=== PATIENT | female | born 1965 | race Caucasian/White ===

== ENCOUNTER 2018-03-15 13:41 | Outpatient (CLI) | payer BC | END 2018-03-15 13:42 | disposition home or self-care (01) | LOC: BICMAMMO 13:41 | PROVIDERS: ATTEND Family Medicine | DX: Z12.31 Encounter for screening mammogram for malignant neoplasm of breast (principal); Z13.820 Encounter for screening for osteoporosis; Z85.89 Personal history of malignant neoplasm of other organs and systems; Z80.3 Family history of malignant neoplasm of breast; Z85.828 Personal history of other malignant neoplasm of skin | CPT/HCPCS: 77063; 77067; 77080 ==

== ENCOUNTER 2018-08-30 12:58 | Outpatient (CLI) | payer BC ==
--- NOTE | 2018-08-30 17:28 | ULT ---
LIMITED RIGHT BREAST ULTRASOUND: Date: 08-30-18 Provided Clinical History: Right breast palpable abnormality. FINDINGS: Limited sonographic interrogation was performed of the right breast in the region of palpable concern . There is a 3.7 cm cyst present in the region of palpable concern. There is a somewhat thickened wal l and internal debris suggesting associated inflammation. IMPRESSION: BIRADS category 2 - benign findings. Cyst aspiration may be useful for symptomatic benefit. POS: OFF
== END 2018-08-30 12:59 | disposition home or self-care (01) ==
LOC: BICMAMMO 12:58
PROVIDERS: ATTEND Family Medicine
DX: N63.10 Unspecified lump in the right breast, unspecified quadrant (principal); Z80.3 Family history of malignant neoplasm of breast; Z85.828 Personal history of other malignant neoplasm of skin
CPT/HCPCS: G0279

== ENCOUNTER → 2018-09-02 | Day surgery (SDC) | payer BC ==
--- NOTE | 2018-09-02 09:44 | ULT ---
ULTRASOUND GUIDED RIGHT BREAST CYST ASPIRATION: DATE: 09/02/2018. PROVIDED CLINICAL HISTORY: Right breast cyst which is painful. FINDINGS: Informed consent was obtained from the patient. The 12 o'clock right breast cyst was again identifie d. The skin overlying this region was prepped and draped in the usual sterile manner. The soft tiss ues were infiltrated with 1% buffered Lidocaine. Under continuous sonographic guidance, a 22-gauge s cesar needle was advanced into the cyst with aspiration of approximately 15 cc of simple-appearing sl ightly yellow-tinged fluid. The needle was withdrawn and hemostasis achieved. No immediate complica tions. Post procedure sonography demonstrates complete resolution of the cyst. IMPRESSION: Technically successful right breast cyst aspiration. POS: OFF
== END ==
LOC: BICULT 07:33
PROVIDERS: ATTEND Family Medicine
PROC: 0H9T3ZZ Drainage of Right Breast, Percutaneous Approach (ICD-10-PCS; principal; 2018-09-02)
DX: N60.01 Solitary cyst of right breast (principal)
CPT/HCPCS: 76942

== ENCOUNTER 2019-03-22 11:54 | Outpatient (CLI) | payer BC ==
--- NOTE | 2019-03-22 13:27 | MRI ---
BRAIN MRI WITHOUT CONTRAST: 03/22/19 INDICATION: Frequent headaches. Reference is made to prior head CT, 06/09/17. FINDINGS: Ventricular system is normal in size. No mass effect, midline shift or acute territorial infarction. 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 Ther e is also susceptibility of the overlying left temporal calvarium related to craniotomy. No significa nt signal abnormalities of the brain parenchyma are evident. IMPRESSION: 1. No acute intracranial abnormalities. 2. 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 POS: C
--- NOTE | 2019-03-22 13:56 | MRI ---
MRA WIYOT OF MEDEROS, WITH 3D VOLUME RENDERING, NONCONTRAST: 03/22/19 CLINICAL HISTORY: Frequent headaches. History of prior aneurysm clipping. FINDINGS: Susceptibility artifact at the left carotid terminus is present relating to aneurysm clipping which d oes obscure visualization of this region. There is also susceptibility from overlying temporal cranio cherelle. Vertebrobasilar system is patent. The bilateral posterior cerebral arteries are unremarkable. The pro ximal left M1 segment is obscured by susceptibility but otherwise left MCA, as well as right MCA are patent. No significant stenosis or occlusion of the AZUL, bilaterally. Region of ACOM is unremarkable. Left posterior communicating artery region is obscured anteriorly by susceptibility. Otherwise, smal l caliber posterior communicating arteries are grossly unremarkable. No discrete intracranial aneurysm is evident. 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 Otherwise no s ignificant abnormality of the eklutna of Med[place] is seen. POS: [facility]
== END 2019-03-22 11:55 | disposition home or self-care (01) ==
LOC: BICMRI 11:54
PROVIDERS: ATTEND Family Medicine
DX: R51 Headache (principal)
CPT/HCPCS: 70544; 70551

== ENCOUNTER 2019-05-24 08:30 | Outpatient (CLI) | payer BC ==
--- NOTE | 2019-05-24 09:40 | MMO ---
Bilateral MAMMO Bilat Diag DDI+TIN. CLINICAL HISTORY: Patient is 53 years old and is seen for diagnostic exam and palpable abnormality in the left breast. The patient has no family history of breast cancer. The patient has no personal history of cancer. The patient has a history of right Cyst Aspiration in 2019. VIEWS: The views performed were: bilateral craniocaudal with tomosynthesis; bilateral mediolateral oblique with tomosynthesis; and bilateral mediolateral with tomosynthesis. FILMS COMPARED: The present examination has been compared to prior imaging studies performed at [facility] on 03/15/2018, 08/30/2018 and 05/24/2019. MAMMOGRAM FINDINGS: The breasts are heterogeneously dense, which could obscure a lesion on mammography. Finding 1: There are stable benign appearing calcifications seen in both breasts. Finding 2: There is an oval mass measuring 30 millimeters with circumscribed margins seen in the lower-inner region of the left breast. Corresponds to palpable abnormality. IMPRESSION: FINDING 1: STABLE CALCIFICATIONS IN BOTH BREASTS ARE BENIGN. FINDING 2: MASS IN THE LEFT BREAST REQUIRES ADDITIONAL EVALUATION. AN ULTRASOUND EXAM IS RECOMMENDED. THE RESULTS OF THIS EXAM WERE SENT TO THE PATIENT. ACR BI-RADS Category 0 - Incomplete: Need additional imaging evaluation. [facility] will notify the patient of the need for additional imaging services. MAMMOGRAPHY NOTE: 1. A negative mammogram report should not delay a biopsy if a dominant of clinically suspicious mass is present. 2. Approximately 10% to 15% of breast cancers are not detected by mammography. 3. Adenosis and dense breasts may obscure an underlying neoplasm. Reported by: SITA MOORE MD Electonically Signed: [id number]
--- NOTE | 2019-05-24 12:00 | ULT ---
LEFT BREAST ULTRASOUND: HISTORY: Palpable abnormality 7 o'clock position left breast. COMPARISON: Mammogram done today. FINDINGS: Ultrasound examination confirms the presence of a large 2.4 x 3.8 cm cyst. IMPRESSION: BIRADS category 2 - benign findings. POS: OFF
== END 2019-05-24 08:31 | disposition home or self-care (01) ==
LOC: BICMAMMO 08:30
PROVIDERS: ATTEND Family Medicine
DX: N63.24 Unspecified lump in the left breast, lower inner quadrant (principal); N63.10 Unspecified lump in the right breast, unspecified quadrant; R92.1 Mammographic calcification found on diagnostic imaging of breast
CPT/HCPCS: 77066; G0279

== ENCOUNTER 2019-12-06 14:18 | Outpatient (CLI) | payer BC ==
--- NOTE | 2019-12-06 15:37 | ULT ---
FOCUSED ULTRASOUND OF THE LEFT BREAST 12/06/19 COMPARISON: 05/24/19 HISTORY: Palpable mass within the left breast at the 11 o'clock position. FINDINGS: Inn the area of palpable concern, approximately 2 cm from the nipple, at the 11 o'clock position of t he left breast, there is a cyst measuring 2.7 x 1.7 x 2.7 cm. It demonstrates no internal blood flow or solid components. There is layering debris seen posteriorly within the cyst. IMPRESSION: Mildly complex cyst in the area of palpable concern on the left. This lesion is amenable to ultrasou nd guided aspiration if clinically warranted. POS: [facility]
--- NOTE | 2019-12-06 15:38 | MMO ---
Left Breast MAMMO Unilat Diag DDI LT+TIN. CLINICAL HISTORY: Patient is 54 years old and is seen for diagnostic exam. The patient has no family history of breast cancer. The patient has no personal history of cancer. The patient has a history of right Cyst Aspiration in 2019. VIEWS: The views performed were: left craniocaudal with tomosynthesis; left mediolateral oblique with tomosynthesis; and left mediolateral with tomosynthesis. FILMS COMPARED: The present examination has been compared to prior imaging studies performed at [facility] on 08/30/2018, 05/24/2019 and 12/06/2019. This study has been interpreted with the assistance of computer-aided detection. MAMMOGRAM FINDINGS: The breast is heterogeneously dense, which could obscure a lesion on mammography. There is an oval mass seen in the left breast at 11 o'clock. Focused ultrasound demonstrates a cyst with layering debris in this region. No solid components or internal blood flow. There are no suspicious masses, suspicious calcifications, or new areas of architectural distortion. IMPRESSION: THERE IS NO MAMMOGRAPHIC EVIDENCE OF MALIGNANCY. A ROUTINE FOLLOW-UP MAMMOGRAM IN 1 YEAR IS RECOMMENDED. THE RESULTS OF THIS EXAM WERE SENT TO THE PATIENT. ACR BI-RADS Category 2 - Benign finding MAMMOGRAPHY NOTE: 1. A negative mammogram report should not delay a biopsy if a dominant of clinically suspicious mass is present. 2. Approximately 10% to 15% of breast cancers are not detected by mammography. 3. Adenosis and dense breasts may obscure an underlying neoplasm. Reported by: GURMEET SHAVER MD Electonically Signed: [id number]
== END 2019-12-06 14:19 | disposition home or self-care (01) ==
LOC: BICMAMMO 14:18
PROVIDERS: ATTEND Physician Assistant Medical
DX: N63.22 Unspecified lump in the left breast, upper inner quadrant (principal); N60.11 Diffuse cystic mastopathy of right breast
CPT/HCPCS: G0279

== ENCOUNTER 2020-07-31 13:10 | Outpatient (CLI) | payer BC ==
--- NOTE | 2020-07-31 13:57 | ULT ---
EXAM: Right lower extremity venous ultrasound HISTORY: Right lower extremity pain COMPARISON: None TECHNIQUE: Multiplanar grayscale and color Doppler images were obtained in a right lower extremity ve nous ultrasound. Spectral analysis of the Doppler waveforms were performed. FINDINGS: The common femoral vein, profunda femoral vein, superficial femoral vein, and popliteal vei n are normal in appearance without visible thrombus. These vessels demonstrate normal compression, flow, and augmentation. The posterior tibial vein and greater saphenous vein are patent without evidence of thrombus. IMPRESSION: No evidence of DVT.
--- NOTE | 2020-07-31 16:11 | ULT ---
DOPPLER ARTERIAL EVALUATION OF THE RIGHT LOWER EXTREMITY: 07/31/20 INDICATION: History of pain in the right leg after sitting with her feet up or in getting out of bed. COMPARISON: None. FINDINGS: There are appropriate triphasic waveforms within the arterial structures interrogated within the righ t lower extremity. No hemodynamically significant stenosis is grossly evident. The right common femor al artery, profunda femoral artery, superficial femoral artery, right popliteal artery, anterior tibi al, posterior tibial and dorsalis pedis arteries were assessed. IMPRESSION: No hemodynamically significant stenosis involving the arterial structures interrogated in the right l ower extremity. POS: BH
== END 2020-07-31 13:11 | disposition home or self-care (01) ==
LOC: ULT 13:10
PROVIDERS: ATTEND Family Medicine
DX: M79.604 Pain in right leg (principal)
CPT/HCPCS: 93923

== ENCOUNTER 2021-07-23 09:59 | Outpatient (CLI) | payer BC | END 2021-07-23 10:00 | disposition home or self-care (01) | LOC: BICRAD 09:59 | PROVIDERS: ATTEND Family Medicine | DX: M25.511 Pain in right shoulder (principal); M19.011 Primary osteoarthritis, right shoulder ==

== ENCOUNTER 2023-04-28 10:14 | Outpatient (CLI) | payer BC | END 2023-04-28 10:15 | disposition home or self-care (01) | LOC: ULT 10:14 | PROVIDERS: ATTEND Nurse Practitioner Family | DX: R10.2 Pelvic and perineal pain (principal); R93.89 Abnormal findings on diagnostic imaging of other specified body structures | CPT/HCPCS: 76856 ==

== ENCOUNTER 2023-05-13 08:45 | Outpatient (CLI) | payer BC | END 2023-05-13 08:46 | disposition home or self-care (01) | LOC: BICMAMMO 08:45 | PROVIDERS: ATTEND Family Medicine | DX: Z12.31 Encounter for screening mammogram for malignant neoplasm of breast (principal); Z98.890 Other specified postprocedural states | CPT/HCPCS: 77063; 77067 ==